=== PATIENT | female | born 1985 | race Caucasian/White ===

== ENCOUNTER 2018-04-18 07:07 | Inpatient (IN) ==
--- NOTE | 2018-04-18 07:42 | ED ---
History of Present Illness Primary Care Physician: ELMER Collins Chief Complaint: Contractions History of Present Illness: 33-year-old who is at term gestation comes in today due to contractions. Patient had a scheduled for 330 this afternoon started having contractions at 05 30 this morning which gradually worsened. She states that she broke her bag of water about 5 minutes before I came and saw her. She denies any other antepartum complications and denies vaginal bleeding is been having normal movement. Weeks Gestation:: 39 Para: 1 : 4 Total # of Abortions (Spontaneous & Elective): 1 (Ectopic ) - Inpatient Certification If this patient has been admitted as an Inpatient: I certify that the inpatient services were ordered in accordance with Medicare regulations governing the order. This includes certification that hospital inpatient services are reasonable and necessary and in the case of services not specified as inpatient-only under 42 CFR 419.22(n), that they are appropriately provided as inpatient services in accordance to with the 2-midnight benchmark under 43 CFR 412.3(e) Estimated Total Length of Stay (Days): 3 Plans for Post Hospital Care: Home Review of Systems All other systems reviewed negative except as stated in HPI PMFSH - Medical / Surgical Hx Neg / Unobtainable Medical Problems Denied: Yes Surgical History: No Previous Surgery - Medical History Medical History: Medical History (Last Updated 04/18/18 @ 07:[address] MD) Ectopic - Surgical History Surgical History: Surgical History (Last Updated 04/18/18 @ 07:[address] MD) Previous section - Tobacco History Second Hand Smoke Exposure: No Tobacco Use In Past 30 Days: No - Alcohol History How Often Do You Have a Drink Containing Alcohol: Never - Substance Use History Substance History: No History of Abuse - Travel History History of Recent Travel: No Recent Travel in the [place] Within the Last 8 Weeks: No Recent Travel Out of the Country Within the Last 8 Weeks: No Medications and Allergies Allergies Allergy/AdvReac Type Severity Reaction Status Date / Time No Known Allergies Allergy none Uncoded 04/18/18 07:27 Home Medications Medication Instructions Recorded Confirmed Type PNV #[id number] 1 tab PO DAILY 04/18/18 04/18/18 History Exam Vital signs: Intake & Output 04/17/18 04/18/18 04/18/18 18:59 06:59 18:59 Weight 94 kg - Constitutional mild distress - Routine HEENT Exam Head: Present: normocephalic, atraumatic - Routine Respiratory Exam Present: CTA bilaterally - Routine Cardiovascular Exam Present: RRR - Routine Abdominal Exam Present: soft (Gravid with obvious contractions palpable) Triage/Final Diagnosis - Visit Information Date of evaluation: 04/18/18 Comments/Additional reasons for admission: Labor prior - Evaluation Baseline heart rate: 140 Variability: Moderate (11-25) monitor accelerations: Present monitor decelerations: None Cervical dilation (cm): 6 Cervical effacement (%): 100 station: 0 Comments: Patient declines to attempt labor after vaginal delivery and desires repeat section. Plan admission and repeat section. OB provider has been called and will be coming in - Final Diagnosis (1) 39 weeks gestation of Current Visit: Yes Status: Acute (2) Previous section complicating , antepartum condition or complication Current Visit: Yes Status: Acute (3) Irregular uterine contractions Current Visit: Yes Status: Acute
[2018-04-18] MEDS ORDERED: Citric Acid/Sodium Citrate Liq 30 ML UDC PO SCH (07:45)
[2018-04-18] MEDS ORDERED: Sod Chloride 0.9% Inj 1,000 ML IV.CONT SCH (07:45)
[2018-04-18] MEDS ORDERED: fentaNYL Citrate Inj 100 MCG/2 ML Ampul IV.PUSH PRN ×2 (07:45)
[2018-04-18] MEDS ORDERED: Naloxone Inj 0.4 MG/ML Vial IV.PUSH PRN ×2 (07:45→09:09)
[2018-04-18] MEDS ORDERED: Oxytocin 30 Units/500ml Premix 30 UNITS/500 ML BAG IV.SIG ONE (07:45)
[2018-04-18] MEDS ORDERED: Sodium Chlor 0.9% Inj 500 ML IV.SIG ONE (07:45)
[2018-04-18] MEDS ORDERED: fentaNYL 2MCG-Bupiv 0.125% Epi 150 ML EPIDURAL ONE (07:46)
[2018-04-18 07:55] LABS: Baso % (Auto) 0.3 % (0.0-2.0); Eos # (Auto) 0.2 th/mm3 (0.0-0.4); Eos % (Auto) 1.7 % (0.0-4.0); Hematocrit 38.1 % (35.0-46.0); Lymph % (Auto) 17.6 % (9.0-44.0); Mean Corpuscular Hemoglobin 28.2 pg (27.0-34.0); Mean Corpuscular Volume 82.9 fL (80.0-100.0); Mean Platelet Volume 7.9 fL (7.0-11.0); Mono # (Auto) 1.1 th/mm3 (0.0-0.9); Mono % (Auto) 9.9 % (0.0-8.0); Neut # (Auto) 8.1 th/mm3 (1.8-7.7); Neut % (Auto) 70.5 % (16.0-70.0); Platelet Count 308 th/mm3 (150-450); Red Cell Distribution Width 12.8 % (11.6-17.2); White Blood Count 11.5 th/mm3 (4.0-11.0)
[2018-04-18] MEDS ORDERED: Lidocaine PF 1% Inj 30 ML Vial ONE (08:14)
--- NOTE | 2018-04-18 09:08 | P.OBDELI ---
Weeks Gestation: 39 Patient Started Active Labor: Yes Active Labor Start Date: 04/18/18 Active Labor Start Time: 05:30 Medical Induction of Labor: No Artificial Rupture of Membrane: No Anesthesia: Epidural Episiotomy: none Vaginal Delivery: Normal, Presentation: Occiput anterior Nuchal Cord: None Delayed Cord Clamping (45 sec): Yes Laceration: 2 deg Repair: Chromic running : Female, Single
[2018-04-18] MEDS ORDERED: Witch Hazel 50%/Glyderin 12.5% 40 Pad Jar RECTAL PRN (09:09)
[2018-04-18] MEDS ORDERED: Zolpidem Tartrate 5 MG Tablet PO PRN (09:09)
[2018-04-18] MEDS ORDERED: Bisacodyl 10 MG Supp RECTAL PRN (09:09)
[2018-04-18] MEDS ORDERED: Benzocaine 20% Top Spray 60 ML Can TOPICAL PRN (09:09)
[2018-04-18] MEDS ORDERED: Acetaminophen 325 MG Tablet PO PRN (09:09)
[2018-04-18] MEDS ORDERED: Oxytocin 30 Units/500ml Premix 30 UNITS/500 ML BAG IV.CONT SCH (09:15)
[2018-04-18] MEDS ORDERED: fentaNYL 2MCG-Bupiv 0.125% Epi 150 ML EPIDURAL PRN (09:16)
[2018-04-18] MEDS ORDERED: fentaNYL Citrate Inj 100 MCG/2 ML Ampul EPIDURAL ONE (09:16)
[2018-04-18] MEDS ORDERED: Measles/Mumps/Rubella Vaccine Inj 0.5 ML Vial SQ ONE (16:00)
[2018-04-18] MEDS ORDERED: Diphtheria/Tetanus/Pertussis Vaccine Inj 0.5 ML Syringe IM ONE (16:00)
[2018-04-18] MEDS: Senna/Docusate Sodium 8.6/50 MG Tablet PO SCH (21:01)
--- NOTE | 2018-04-19 08:57 | P.PNOB ---
Subjective Post day: 1 (doing well) Objective Vital Signs/I&O: Vital Signs 04/18/18 09:00 04/18/18 09:15 04/18/18 09:30 Temperature Pulse Rate 46 L 107 H Respiratory Rate 18 16 18 Blood Pressure 207/188 H 145/83 H 04/18/18 09:45 04/18/18 10:00 04/18/18 10:15 Temperature 98.0 F Pulse Rate 94 H 102 H 149 H Respiratory Rate 16 16 18 Blood Pressure 123/56 L 122/68 88/60 L 04/18/18 10:45 04/18/18 12:00 04/18/18 20:30 Temperature 98.5 F 98.0 F Pulse Rate 99 H 87 74 Respiratory Rate 18 18 17 Blood Pressure 102/63 119/69 107/71 04/19/18 08:00 Temperature 97.6 F Pulse Rate 88 Respiratory Rate 18 Blood Pressure 102/69 Intake & Output 04/18/18 04/19/18 04/19/18 18:59 06:59 18:59 Weight 94 kg Result Diagrams: 04/18/18 07:30 Objective Remarks: GENERAL: Well-nourished, well-developed patient. ABDOMEN/GI: Abdomen soft, non-tender. Fundus: Firm, non-tender at umbilicus. GENITOURINARY: Light to moderate bleeding. EXTREMITIES: No cyanosis or edema, non-tender, without signs of DVT. Medications and IVs: Active Medications Acetaminophen (Tylenol) 650 mg PO Q4H PRN PRN Reason: PAIN SCALE 1 TO 2 Al Hydroxide/Mg Hydroxide (Milk Of Magnesia Liq) 30 ml PO Q12H PRN PRN Reason: Mild Constipation Benzocaine (Americaine 20% Top [place]) 1 spray TOPICAL Q4H PRN PRN Reason: For Perineum Discomfort Bisacodyl (Dulcolax Supp) 10 mg RECTAL DAILY PRN PRN Reason: SEVERE CONSITIPATION Ephedrine Sulfate (Ephedrine/Ns Syringe) 10 mg IV.PUSH UNSCH PRN PRN Reason: SEE LABEL COMMENTS Stop: 04/19/18 09:17 Fentanyl/Bupivacaine/Sodium Chlor (Fentanyl 2 Mcg-Bupiv 0.125% Epi) 150 mls @ 12 mls/hr EPIDURAL PRN PRN PRN Reason: for Labor Pain Miscellaneous Information (Misc Information) 1 each OTHER UNSCH PRN PRN Reason: SEE LABEL COMMENTS Stop: 04/19/18 09:17 Miscellaneous Information (Misc Information) 1 each OTHER UNSCH PRN PRN Reason: SEE LABEL COMMENTS Stop: 04/19/18 09:17 Naloxone HCl (Narcan Inj) 0.1 mg IV.PUSH Q2M PRN PRN Reason: for opiate reversal Ondansetron HCl (Zofran Odt) 4 mg PO Q6H PRN PRN Reason: NAUSEA OR VOMITING Oxycodone/Acetaminophen (Percocet 5/325 Mg) 2 tab PO Q4H PRN PRN Reason: PAIN SCALE 6 TO 10 Last Admin: 04/18/18 21:04 Dose: 2 tab Oxycodone/Acetaminophen (Percocet 5/325 Mg) 1 tab PO Q4H PRN PRN Reason: PAIN SCALE 3 TO 5 Last Admin: 04/19/18 02:30 Dose: 1 tab Senna/Docusate Sodium (Samira-Colace) 1 tab PO BID SITA Last Admin: 04/18/18 21:01 Dose: 1 tab Sennosides (Senokot) 17.2 mg PO Q12H PRN PRN Reason: Moderate Constipation Sodium Chloride (Ns Flush) 2 ml IV.FLUSH BID SITA Sodium Chloride (Ns Flush) 2 ml IV.FLUSH PRN PRN PRN Reason: FLUSH AFTER USING IV ACCESS Witch Evelia/Glycerin (Tucks Pads) 1 applicatio RECTAL QID PRN PRN Reason: HEMORRHOIDS Zolpidem Tartrate (Ambien) 5 mg PO HS PRN PRN Reason: SLEEP Assessment and Plan - Diagnosis (1) (vaginal after ) Code(s): O34.219 - Maternal care for unspecified type scar from previous delivery Status: Acute - Plan Discharge Planning: dc in AM GBS positive
[2018-04-19] MEDS: Senna/Docusate Sodium 8.6/50 MG Tablet PO SCH ×2 (09:11→23:05)
[2018-04-20] MEDS: Senna/Docusate Sodium 8.6/50 MG Tablet PO SCH (08:00)
--- NOTE | 2018-04-20 08:08 | P.PNOB ---
Subjective Post day: 2 (doing well PP ok to DC home) Objective Vital Signs/I&O: Vital Signs 04/19/18 20:00 04/20/18 08:00 Temperature 98.0 F 98.1 F Pulse Rate 66 75 Respiratory Rate 18 18 Blood Pressure 91/66 L 122/77 Result Diagrams: 04/18/18 07:30 Objective Remarks: GENERAL: Well-nourished, well-developed patient. ABDOMEN/GI: Abdomen soft, non-tender. Fundus: Firm, non-tender at umbilicus. GENITOURINARY: Light to moderate bleeding. EXTREMITIES: No cyanosis or edema, non-tender, without signs of DVT. Medications and IVs: Active Medications Acetaminophen (Tylenol) 650 mg PO Q4H PRN PRN Reason: PAIN SCALE 1 TO 2 Al Hydroxide/Mg Hydroxide (Milk Of Magnfei Liq) 30 ml PO Q12H PRN PRN Reason: Mild Constipation Benzocaine (Americaine 20% Top [place]) 1 spray TOPICAL Q4H PRN PRN Reason: For Perineum Discomfort Bisacodyl (Dulcolax Supp) 10 mg RECTAL DAILY PRN PRN Reason: SEVERE CONSITIPATION Fentanyl/Bupivacaine/Sodium Chlor (Fentanyl 2 Mcg-Bupiv 0.125% Epi) 150 mls @ 12 mls/hr EPIDURAL PRN PRN PRN Reason: for Labor Pain Naloxone HCl (Narcan Inj) 0.1 mg IV.PUSH Q2M PRN PRN Reason: for opiate reversal Ondansetron HCl (Zofran Odt) 4 mg PO Q6H PRN PRN Reason: NAUSEA OR VOMITING Oxycodone/Acetaminophen (Percocet 5/325 Mg) 2 tab PO Q4H PRN PRN Reason: PAIN SCALE 6 TO 10 Last Admin: 04/20/18 07:57 Dose: 2 tab Oxycodone/Acetaminophen (Percocet 5/325 Mg) 1 tab PO Q4H PRN PRN Reason: PAIN SCALE 3 TO 5 Last Admin: 04/19/18 15:15 Dose: 1 tab Senna/Docusate Sodium (Samira-Colace) 1 tab PO BID SITA Last Admin: 04/20/18 08:00 Dose: 1 tab Sennosides (Senokot) 17.2 mg PO Q12H PRN PRN Reason: Moderate Constipation Sodium Chloride (Ns Flush) 2 ml IV.FLUSH BID SITA Last Admin: 04/19/18 16:21 Dose: Not Given Sodium Chloride (Ns Flush) 2 ml IV.FLUSH PRN PRN PRN Reason: FLUSH AFTER USING IV ACCESS Witch Evelia/Glycerin (Tucks Pads) 1 applicatio RECTAL QID PRN PRN Reason: HEMORRHOIDS Zolpidem Tartrate (Ambien) 5 mg PO HS PRN PRN Reason: SLEEP Assessment and Plan - Diagnosis (1) (vaginal after ) Code(s): O34.219 - Maternal care for unspecified type scar from previous delivery Status: Acute - Plan Discharge Planning: dc in AM GBS positive
== END 2018-04-20 10:15 | disposition home or self-care (01) ==
LOC: HOBED 07:07 → H1EA 07:45 → H2E 07:45 → H1EA 11:02
PROVIDERS: ADMIT Obstetrics & Gynecology; ATTEND Obstetrics & Gynecology